=== PATIENT | female | born 1975 | race African-American/Black ===

== ENCOUNTER → 2016-05-14 | Outpatient (CLI) | payer BC, OTHER ==
[~2016-05-14] MED LIST: AFRIN3 ML; FLEXERIL PO; HYDROCORTISONE30 G2 EXT; IBUPROFEN800 MG PO; ZITHROMAX PO
--- NOTE | ~2016-05-14 | US128 ---
[id number] [address] [address] [id number] O MR#: [id number] Acc #: [id number] NAME: ABDI VIRK : 1975 SEX: F STUDY DATE/TIME: 05/14/2016 14:10 UNIT: [facility] ROOM: STUDY DESCRIPTION: US Thyroid Attending Physician: Fátima Salinas M.D. Referring Physician: Fátima Salinas M.D. Ordering Physician: Fátima Salinas M.D. Primary Care Physician: Fátima Salinas M.D. MEDICAL IMAGING REPORT This report is preliminary unless electronic signature is present. EXAM Thyroid ultrasound INDICATIONS Thyromegaly. Abnormal physical exam 2 weeks ago. COMPARISON None available. FINDINGS The right lobe of the thyroid measures 4.6 x 2.5 x 2 cm. The left lobe measures 4.6 x 2.2 x 1.7 cm. Echogenicity and echotexture of the thyroid parenchyma is normal. There is normal background vascularity. There is a small benign thyroid cyst in the mid-right thyroid measuring less than 0.2 cm. IMPRESSION Normal thyroid ultrasound. Dictated by... Devonte Serrano M.D. THIS IS AN ELECTRONICALLY VERIFIED REPORT Devonte Serrano M.D. at 05/15/2016 3:04 PM SALINA/rex TD: 05/15/2016 00:21 JOB #: [id number] MEDICAL IMAGING REPORT Page 1 of 1
== END | disposition home or self-care (01) ==
LOC: SGUS 13:27
DX: E01.0 Iodine-deficiency related diffuse (endemic) goiter (principal)
CPT/HCPCS: 76536